=== PATIENT | male | born 1955 | race Caucasian/White ===

== ENCOUNTER → 2020-07-02 10:25 | Outpatient (CLI) | payer MEDICARE, SELFPAY ==
--- NOTE | ~2020-07-02 | CT_ITS ---
EXAMINATION: CT sinus wo con DATE: 07/02/2020 10:42 INDICATION: Chronic sinusitis TECHNIQUE: Computed tomography (CT) of the paranasal sinuses was performed without intravenous contra st. The dose-length product was 280.01 mGy-cm. Automated exposure control and iterative reconstructio n technique were employed. COMPARISON: No prior studies for comparison. FINDINGS: There are mucous retention cysts of the maxillary sinuses. Mild mucosal thickening of the m axillary, ethmoid and frontal sinuses. Ostiomeatal units are patent. Mastoids are pneumatized. No air -fluid levels or mucoperiosteal reaction. IMPRESSION: 1. Mild sinus disease, likely chronic. Reviewed, dictated and finalized at location B.
== END ==
PROVIDERS: PCP Family Medicine; Visit Provider Nurse Practitioner Family
DX: J32.9 Chronic sinusitis, unspecified (principal)
CPT/HCPCS: 70486

== ENCOUNTER 2021-07-27 12:34 | Emergency (ER) | payer MEDICARE, SELFPAY ==
--- NOTE | ~2021-07-27 | XR_ITS ---
EXAMINATION: XR chest 2V DATE: 07/27/2021 13:11 INDICATION: Cough and congestion TECHNIQUE: PA and lateral views of the chest were obtained. COMPARISON: Chest radiograph dated 01/11/2019 FINDINGS: The lungs are clear with no focal airspace opacities, pulmonary edema, pleural effusion or pneumothor ax. The cardiomediastinal silhouette is normal. Visualized bones and soft tissues are unremarkable. IMPRESSION: 1. No acute cardiopulmonary disease. Reviewed, dictated and finalized at location A.
[2021-07-27 12:40] VITALS: BP 146/79; PULSE 83; RESP 20; TEMP 36.7; O2SAT 98
--- NOTE | 2021-07-27 13:01 | ED.GENADULT ---
HPI - General Adult General Chief complaint: Upper Respiratory Infection Stated complaint: Ear pain, sore throat. Source: patient Mode of arrival: ambulatory Limitations: no limitations History of Present Illness HPI narrative: Patient presents for evaluation of respiratory symptoms for the last 3 days. Indicates his symptoms started after he was riding his bike. Symptoms include sore throat, mild bilateral otalgia, sinus congestion, yellow rhinorrhea, cough, SOB and chills. No fever, nausea, vomiting, diarrhea. No recent sick contacts. He has not received a flu shot. He has received COVID vaccination. He was diagnosed with multiple PE's a few years ago and is compliant with eliquis. He has tried sudafed, chlorpheniramine, flonase, neomycin ophthalmic without any significant improvement in his symptoms. He is requesting steroids and antibiotics and says that he believes they will treat his allergies . He indicates he was told that he has COPD. Related Data Home Medications Medication Instructions Recorded Confirmed desloratadine 5 mg tablet 5 mg PO DAILY 06/22/20 07/27/21 montelukast 10 mg tablet 10 mg PO DAILY 06/22/20 07/27/21 metoprolol succinate 25 mg PO DAILY 07/27/21 07/27/21 Allergies Allergy/AdvReac Type Severity Reaction Status Date / Time No Known Allergies Allergy Verified 07/09/21 14:17 Review of Systems Review of Systems: CONSTITUTIONAL: Reports chills. Denies fever or sweats. EYES: Denies visual changes, redness, or discharge. ENT:Report sinus congestion, yellow rhinorrhea, sore throat and bilateral ear discomfort CARDIOVASCULAR: Denies chest pain, palpitations, or edema. RESPIRATORY: Reports cough and SOB. GASTROINTESTINAL: Denies abdominal pain, nausea, vomiting, or diarrhea. GENITOURINARY: Denies dysuria or hematuria. SKIN: Denies rash or itching. MUSCULOSKELETAL: Denies back pain, joint pain, or myalgia. NEUROLOGIC:Reports dizziness. Denies headache, numbness, or weakness. PSYCHIATRIC: Denies anxiety or depression. [facility] Past Medical History Medical History (Updated 07/27/21 @ 14:09 by Robert Bourgeois, [facility], ) Allergic rhinitis BMI 33.0-33.9,adult Chronic deep vein thrombosis (DVT) COPD (chronic obstructive pulmonary disease) Essential hypertension Pulmonary embolism Screen for colon cancer Toenail bruise Surgical History Surgical History History of tonsillectomy Family History Family History Mother Cerebrovascular accident Family history of heart disease in male family member before age 55 Father Family history of malignant neoplasm of brain Social History Social History Tobacco type: cigarettes Alcohol intake: current Alcohol use details: social Substance use type: marijuana Living arrangements: alone Occupation/Education: retired Gender identity (if verbalized by the patient): Male Spiritual care concerns: No Exam Narrative: GENERAL: Well-appearing, well-nourished, and in no acute distress. HEAD: Normocephalic, atraumatic. EYES: PERRLA and EOMI. ENT: Nares clear, no rhinorrhea or epistaxis. Mucous membranes moist. Tonsils are absent. There is posterior pharyngeal erythema. Uvula is midline. Bilateral TMs pearly perales nonbulging NECK: Supple. No adenopathy or masses. No carotid bruits or JVD CHEST: Clear to auscultation. No respiratory distress. No wheezes rales or rhonchi HEART: Regular rate and rhythm. No murmur heard. Normal peripheral pulses. ABDOMEN: Soft, nontender, nondistended, normal active bowel sounds. EXTREMITIES: Normal range of motion. No edema. SKIN: Warm, dry, no rash. NEURO: No focal deficits. Alert and oriented x3. PSYCH: Normal mood and affect. Course Course Emergency Course: This is a 66-year-old male who presented with complaints of up
== END 2021-07-27 14:13 | disposition home or self-care (01) ==
PROVIDERS: Emergency Provider Nurse Practitioner; PCP Family Medicine
DX: B34.9 Viral infection, unspecified (principal); Z20.822 Contact with and (suspected) exposure to COVID-19; Z86.711 Personal history of pulmonary embolism; Z86.718 Personal history of other venous thrombosis and embolism; J44.9 Chronic obstructive pulmonary disease, unspecified; I10 Essential (primary) hypertension
CPT/HCPCS: 71046; 87081; 87426; 87804; 87880; 99213; C9803; G0463

== ENCOUNTER → 2021-08-20 12:12 | Outpatient (CLI) | payer MEDICARE, SELFPAY ==
--- NOTE | ~2021-08-20 | XR_ITS ---
EXAMINATION: XR chest 2V 08/20/2021 12:27 INDICATION: Shortness of breath PROCEDURE: 2 view chest COMPARISON: 07/27/2021 FINDINGS: The lungs are clear. The cardiomediastinal silhouette is within normal limits. There are no pleural effusions. There is no pneumothorax suspected. IMPRESSION: 1: NO ACUTE CARDIOPULMONARY DISEASE. Reviewed, dictated and finalized at location A.
== END ==
PROVIDERS: PCP Family Medicine; Visit Provider Nurse Practitioner Family
DX: R06.02 Shortness of breath (principal); R05.9 Cough, unspecified
CPT/HCPCS: 71046

== ENCOUNTER 2022-04-28 14:08 | Outpatient (CLI) | payer MEDICARE, SELFPAY ==
--- NOTE | ~2022-04-28 | CT_ITS ---
EXAMINATION: CT sinus wo con DATE: 04/28/2022 14:26 INDICATION: Chronic sinusitis. TECHNIQUE: Computed tomography (CT) of the paranasal sinuses was performed without intravenous contra st. Iterative reconstruction technique was employed. The dose-length product was 322.78 mGy-cm. COMPARISON: Sinuses CT 07/02/2020 FINDINGS: There is mild mucosal thickening in the frontal and ethmoid sinuses. There is complete opac ification of an air cell in the left anterior ethmoid sinuses. The sphenoid sinuses are clear. There are mucous retention cysts in the inferior maxillary sinuses. The ostiomeatal units are patent. There is leftward deviation of the nasal septum. IMPRESSION: 1. Mucosal thickening in the paranasal sinuses. 2. Leftward deviation of the nasal septum. Reviewed, dictated and finalized at location A. [employer]
== END 2022-04-28 14:09 | disposition home or self-care (01) ==
PROVIDERS: PCP Family Medicine; Visit Provider Physician Assistant Medical
DX: R09.89 Other specified symptoms and signs involving the circulatory and respiratory systems (principal); J34.2 Deviated nasal septum
CPT/HCPCS: 70486

== ENCOUNTER → 2022-07-07 13:05 | Outpatient (CLI) | payer MEDICARE, SELFPAY ==
--- NOTE | ~2022-07-07 | XR_ITS ---
EXAMINATION: XR chest 2V Exam Date/Time: 07/07/2022 13:08 CDT HISTORY: COUGH FEVER WHEEZING FOR 1 WEEK Comparison: 08/20/2021. RESULT: Lines, tubes, and devices: None. Lungs and pleura: Diffuse reticular opacities with cuffing. Cardiomediastinal silhouette: Stable. Other: No acute osseous or upper abdominal finding. IMPRESSION: Pulmonary opacities may represent respiratory vasculitis versus interstitial edema. Reviewed, dictated and finalized at location K. IMPRESSION: Pulmonary opacities may represent respiratory vasculitis versus interstitial ed destiny.
== END ==
PROVIDERS: PCP Family Medicine; Visit Provider Physician Assistant Medical
DX: R06.2 Wheezing (principal); R91.8 Other nonspecific abnormal finding of lung field
CPT/HCPCS: 71046

== ENCOUNTER → 2023-03-20 11:03 | Outpatient (CLI) | payer MEDICARE, SELFPAY ==
--- NOTE | ~2023-03-20 | XR_ITS ---
Clinical Indication: Pneumonia PA and lateral views of the chest: Comparison: 07/07/2022 Findings: The lungs are clear, without evidence of focal consolidation or pleural effusion. Cardiome diastinal silhouette is within normal limits. Bones and soft tissues are unremarkable. Impression: Normal chest. Reviewed, dictated and finalized at [facility]. COORDINATOR Impression: Normal chest.
== END ==
PROVIDERS: PCP Nurse Practitioner Family; Visit Provider Nurse Practitioner Family
DX: J18.9 Pneumonia, unspecified organism (principal)
CPT/HCPCS: 71046

== ENCOUNTER → 2023-05-08 12:58 | Outpatient (CLI) | payer MEDICARE, SELFPAY ==
--- NOTE | ~2023-05-08 | CT_ITS ---
EXAMINATION: CT sinus wo con DATE: 05/08/2023 13:14 INDICATION: Chronic sinusitis TECHNIQUE: Computed tomography (CT) of the paranasal sinuses was performed without contrast. Iterativ e reconstruction technique was employed. Exam dose: 420.49 mGy-cm total exam DLP. COMPARISON: None FINDINGS: Mild leftward deviation of the nasal septum. There is moderately prominent soft tissue swelling of th e nasal turbinates. The ostiomeatal units are patent. Approximately 1.7 cm mucous retention cyst or polyp is noted along the inferomedial wall the left maxillary sinus. Approximately 6.5 x 11.5 mm soft tissue opacification at the anterior left ethmoid area. The mastoid air cells are normally developed and aerated bilaterally. IMPRESSION: Mild bilateral maxillary sinus and ethmoid soft tissue thickening Reviewed, dictated and finalized at Location A. Reviewed, dictated and finalized at location B. [employer]
== END ==
PROVIDERS: PCP Family Medicine; Visit Provider Otolaryngology
DX: R91.8 Other nonspecific abnormal finding of lung field (principal)
CPT/HCPCS: 70486